=== PATIENT | male | born 1950 | race Caucasian/White ===

== ENCOUNTER → 2016-05-15 | Outpatient (CLI) | payer MEDICARE, OTHER ==
--- NOTE | 2016-05-15 14:15 | US ---
EXAMINATION TYPE: US duplex aorta DATE OF EXAM: 05/15/2016 2:05 PM COMPARISON: NONE CLINICAL HISTORY: Z87.891 History of tobacco. Pt states previous smoker, no other complaints at this time EXAM MEASUREMENTS: Abdominal Aorta: Proximal: 2.0 x 2.1 cm Mid: 1.8 x 1.8 cm Distal: 1.7 x 2.0 cm Bifurcation: ANGEL: 1.0 x 0.8 cm DEBORAH: 1.1 x 0.9 cm Aorta appeared wnl, no evidence of AAA IMPRESSION: NO EVIDENCE OF AORTIC ANEURYSM AT THIS TIME.
== END | disposition home or self-care (01) ==
LOC: RADUSWWP 13:48
PROVIDERS: ATTEND Family Medicine
DX: Z09 Encounter for follow-up examination after completed treatment for conditions other than malignant neoplasm (principal); Z87.891 Personal history of nicotine dependence
CPT/HCPCS: 93979

== ENCOUNTER 2018-12-02 06:42 | Day surgery (SDC) | payer MEDICARE, OTHER ==
[~2018-12-02 06:42] MED LIST: LACTATED RINGERS 1,000 ML IV SCH; LIDOCAINE 1% 20 ML VIAL (10MG/ML) FOR IV START INTRADERMA PRN
[2018-12-02 07:11] VITALS: TEMP 97.2
[2018-12-02] MEDS ORDERED: SCOPOLAMINE 1.5MG/72HR PATCH TRANSDERM ONE (07:36)
[2018-12-02] MEDS ORDERED: PROPOFOL 10 MG/ML 20 ML VIAL IV ONE (07:55)
[2018-12-02] MEDS ORDERED: LIDOCAINE 1% INJ 10MG/ML (20 ML MDV) ONE (07:55)
--- NOTE | 2018-12-02 08:01 | P.GSHP ---
History of Present Illness H&P Date: 12/02/18 Chief Complaint: Screening colonoscopy This is a 68-year-old male who presents today for screening colonoscopy. Patient denies any significant GI complaints. Past Medical History Past Medical History: Hyperlipidemia, Osteoarthritis (OA) History of Any Multi-Drug Resistant Organisms: None Reported Additional Past Surgical History / Comment(s): LEFT ROTATOR CUFF X 2. Past Anesthesia/Blood Transfusion Reactions: Motion Sickness, Postoperative Nausea & Vomiting (PONV) Additional Past Anesthesia/Blood Transfusion Reaction / Comment(s): HAS HAD N & V EVEN AFTER COLONSCOPY Past Psychological History: No Psychological Hx Reported Smoking Status: Former smoker Past Alcohol Use History: None Reported Additional Past Alcohol Use History / Comment(s): QUIT ABOUT 15 YRS , 1 PPD Past Drug Use History: None Reported Medications and Allergies Home Medications Medication Instructions Recorded Confirmed Type Atorvastatin [Lipitor] 10 mg PO HS 11/29/18 12/02/18 History Celecoxib [CeleBREX] 200 mg PO QAM 11/29/18 12/02/18 History Allergies Allergy/AdvReac Type Severity Reaction Status Date / Time amoxicillin AdvReac Nausea Verified 11/29/18 15:50 Surgical - Exam Vital Signs Temp Pulse Resp BP Pulse Ox 97.2 F L 87 14 151/81 98 12/02/18 07:09 12/02/18 07:09 12/02/18 07:09 12/02/18 07:09 12/02/18 07:09 - General well developed, well nourished, no distress - Eyes PERRL - ENT normal pinna - Neck no masses - Respiratory normal expansion - Cardiovascular Rhythm: regular - Abdomen Abdomen: soft, non tender Assessment and Plan Assessment: We'll perform screening colonoscopy.
--- NOTE | 2018-12-02 08:11 | P.OP ---
Date of Procedure: 12/02/18 Preoperative Diagnosis: Screening colonoscopy Postoperative Diagnosis: Diverticulosis Internal and external hemorrhoids Procedure(s) Performed: Colonoscopy Anesthesia: MAC Surgeon: Matthew Escalante Pathology: none sent Condition: stable Disposition: PACU Description of Procedure: Patient's placed on the endoscopy table in the lateral position. He received IV sedation. Digital rectal exam was performed which revealed internal and external hemorrhoids. The flexible colonoscope was then placed patient anus passed throughout the entire colon. The ileocecal valve was visualized. The cecum, ascending and transverse colon appeared normal. In the descending; there is moderate diverticular changes. There is no evidence of diverticulitis. Scope was then brought back the rectum and this appeared normal. Scope withdrawn the patient.
[2018-12-02 08:20] VITALS: RESP 16
[2018-12-02 08:29] VITALS: BP 117/68; PULSE 81
== END 2018-12-02 08:59 | disposition home or self-care (01) ==
LOC: ORWHC2ENDO 06:42
PROVIDERS: ATTEND Surgery
DX: Z12.11 Encounter for screening for malignant neoplasm of colon (principal); K57.30 Diverticulosis of large intestine without perforation or abscess without bleeding; K64.8 Other hemorrhoids; K64.4 Residual hemorrhoidal skin tags; E78.5 Hyperlipidemia, unspecified; M19.90 Unspecified osteoarthritis, unspecified site; Z79.1 Long term (current) use of non-steroidal anti-inflammatories (NSAID); Z79.899 Other long term (current) drug therapy; Z88.0 Allergy status to penicillin; Z98.890 Other specified postprocedural states; Z87.891 Personal history of nicotine dependence
CPT/HCPCS: J2001; J2704; G0121; 45378

== ENCOUNTER → 2019-02-27 | Outpatient (CLI) | payer MEDICARE, OTHER ==
--- NOTE | 2019-02-27 15:26 | EST ---
EXERCISE STRESS AGE: 68 SEX: M HT: 5'5" WT: 170 PROTOCOL: Anton Stress Test STAGE: I DURATION OF EXERCISE: 3:30 HEART RATE REST: 107 BLOOD PRESSURE REST: 145/100 MAXIMUM HEART RATE ACHIEVED: 139 MAXIMUM BLOOD PRESSURE: 205/82 85% MPHR: 130 100% MPHR: 153 METS: 5.2 INDICATIONS: Family history. CLINICAL INFORMATION: Patient was exercised for a total period of 3 minutes and 30 seconds. The peak heart rate of 139 was achieved. Maximum blood pressure of 205/82 mmHg was noted. Patient did not complain of any chest pain during the test. The test was terminated because of the symptoms of shortness of breath. Resting EKG shows normal sinus rhythm with normal ID interval and QRS duration and normal ST-T wave. No ST-segment depression suggestive of ischemia is noted. Occasional PVCs were noted. FINAL IMPRESSION: 1. This exercise EKG does not show any ST-segment depression suggestive of ischemia. 2. Patient's exercise tolerance is below average and is limited due to the symptoms of shortness of breath. 3. Intermittent PVCs were noted. MMODL / IJN: [id number] /
== END | disposition home or self-care (01) ==
LOC: RADNMMAIN 10:22
PROVIDERS: ATTEND Family Medicine
DX: Z09 Encounter for follow-up examination after completed treatment for conditions other than malignant neoplasm (principal); I49.3 Ventricular premature depolarization; R06.02 Shortness of breath; Z82.49 Family history of ischemic heart disease and other diseases of the circulatory system
CPT/HCPCS: 93017

== ENCOUNTER 2019-04-20 07:51 | Day surgery (SDC) | payer MEDICARE, OTHER ==
[2019-04-19 08:19] VITALS: BMI 29.2
[~2019-04-20 07:51] MED LIST changes: +DEXAMETHASONE SOD PHOSPHATE 10 MG/ML 1 ML VIAL IV ONE; +MIDAZOLAM 2 MG/2 ML VIAL IV PRN; +fentaNYL (PF) 50 MCG/ML 2 ML AMP IVP PRN
[2019-04-20] MEDS: ONDANSETRON 4 MG/2 ML VIAL IVP ONE ×2 (08:31→13:24)
[2019-04-20] MEDS ORDERED: LIDOCAINE 1% INJ 10MG/ML (20 ML MDV) ONE (10:53)
[2019-04-20] MEDS ORDERED: PROPOFOL 10 MG/ML 20 ML VIAL IV ONE (10:53)
[2019-04-20] MEDS ORDERED: fentaNYL (PF) 50 MCG/ML 2 ML AMP ONE (10:53)
[2019-04-20] MEDS ORDERED: SUCCINYLCHOLINE CHLORIDE 100 MG/5 ML SYR IV ONE (10:53)
[2019-04-20] MEDS ORDERED: MIDAZOLAM 2 MG/2 ML VIAL ONE (10:53)
--- NOTE | 2019-04-20 11:58 | P.OP ---
Date of Procedure: 04/20/19 Preoperative Diagnosis: 1. Right hallux rigidus 2. Right bunionette deformity Postoperative Diagnosis: Same Procedure(s) Performed: 1. Implant arthroplasty first MTP joint, right foot 2. Fifth MTP lateral eminence resection and capsular advancement, right foot Anesthesia: ELBERT Surgeon: Gus Prieto [employer] Worker #1: Claudy Stone Estimated Blood Loss (ml): 5 IV fluids (ml): 1,200 Pathology: none sent Condition: stable Disposition: PACU Indications for Procedure: The patient is very pleasant 68-year-old male with a long-standing history of problems with his right foot. He filled a lengthy course of nonsurgical iglesia tment for hallux rigidus and a bunionette deformity. We discussed different surgical treatments for hallux rigidus including cheilectomy, fusion, and implant arthroplasty. After discussing the pros and cons the patient requested going forward with implant arthroplasty. We discussed the potential risks, Locations, and limitations including but not limited to risk of infection, risk of anesthesia, risk of damage to local blood vessels or nerves, risk of continued or worsened pain, risk of intraoperative fracture, risk of postoperative fracture risk of implant subsidence, risk of DVT, risk of PE, risk of other medical complications, need for further surgery including removal of the implant fusion, generalized to satisfaction with his surgical outcome, and inability to regain preinjury level of function, and possibly loss of life or limb. The patient also requested surgical management of a bunionette deformity. We discussed different options including lateral eminence resection with S urgery in cement, distal osteotomy, and diaphyseal osteotomy. After discussing the pros and cons of both in reviewing his x-rays of both decided that the lateral eminence resection and capsular advancement would be in his best interest. He understands the potential risks and Locations including but not limited to risk of infection, damage to local blood vessels or nerves, under correction, overcorrection, recurrence, continued or worsened symptoms, and possibly loss of life or limb. He understands that while these are some of the most common complications other less common complications are possible. He provided his verbal and written consent to go forward with surgery. Description of Procedure: The patient is a thin prep in holding and the correct right foot was marked with my initials. I reviewed the consent form with the patient and his . All their questions were answered. The patient was then brought back to the operating room by anesthesia. He was positioned on the OR table where general anesthetic and preoperative antibiotics were given. A tourniquet was applied to the proximal aspect of the right leg. All bony prominences were well-padded. The right leg was then prepped and draped in the standard sterile fashion. Prior to starting surgery timeout was performed identifying the correct patient, operative extremity, and procedure. The patient's leg was then elevated, exsanguinated with an Esmarch bandage, and the tourniquet was inflated to 250 mmHg. I began by outlining a straight dorsal incision to the first MTP joint. Skin incision was made with a scalpel and dissection was carried down carefully through the subcu cutaneous tissue. The EHL tendon sheath was incised and the tendon was retracted laterally. The capsule of the first MTP joint was incised. On inspection of the joint there were large peripheral osteophytes which were contoured. On inspection of the joint there was full-thickness cartilage loss over the dorsal two thirds of the first metatarsal and proximal phalanx. A K wire was driven on the central aspect of the first metatarsal head. A 10 mm implant appeared to be the correct size. The reamer was used over the K wire to create a socket for the Cartiva implant. A 10 mm implant was dispensed and then press-fit into the socket after the wound had been thoroughly irrigated of debris. The joint was brought through range of motion and had a smooth arc of motion. The wound was thoroughly irrigated and closed in layers. X Attention was then turned to the lateral aspect of the fifth MTP joint. Skin incision was made with a scalpel. Dissection was carried down carefully to the subcu tenuous tissue. A Chevron type capsulotomy was performed with the apex proximally. The lateral aspect of the fifth metatarsal head was then exposed and a small microsagittal saw was used to remove an enlarged prominence flush with the shaft. A rasp was used to contour the lateral aspect. The capsule was then advanced proximally to help further straighten the toe. The wound was thoroughly irrigated and closed in layers. A sterile dressing consisting of Betadine soaked Adaptic, 4 x 4, and web rolls applied followed by an Carlos wrap. The patient was awoken from his anesthetic, transferred from the OR table to the gurney, and brought to recovery have entire procedure well. Plan: The patient is going to be discharged home as an outpatient. He can weight-bear as tolerated in a boot. He will leave his dressing on for 2 days at which point he can be removed and he can get incision wet in the shower. He is to not soak the foot. He will follow-up in the office in 2 weeks. He does not need x-rays at that time.
--- NOTE | 2019-04-20 12:19 | FL ---
EXAMINATION TYPE: FL guidance operating room, XR foot limited RT DATE OF EXAM: 04/20/2019 CLINICAL HISTORY: First toe pain. TECHNIQUE: Fluoroscopy. Limited intraoperative views right foot. COMPARISON: None. FINDINGS: Fluoroscopic guidance was provided during right first toe arthroplasty procedure performed by Dr. Prieto. A total of 1 seconds of fluoroscopic time was utilized during the procedure and si ngle spot intraoperative image is acquired. Single images acquired show [id number] disc space narrowing with moderate peripheral spurring a t first metatarsal-phalangeal joint. IMPRESSION: As Above.
[2019-04-20 12:21] VITALS: TEMP 98.2
[2019-04-20] MEDS: HYDROmorphone 0.5 MG/0.5 ML SYRINGE IVP PRN ×2 (12:43→12:48)
[2019-04-20] MEDS ORDERED: HYDROcodone/APAP 5-325MG 1 EACH TAB PO ONE (14:27)
[2019-04-20] MEDS ORDERED: hydrALAZINE HCL 20 MG/ML 1 ML VIAL IVP ONE (14:59)
[2019-04-20 15:20] VITALS: BP 153/81; PULSE 100; RESP 18
== END 2019-04-20 16:20 | disposition home or self-care (01) ==
LOC: OR 07:51
PROVIDERS: ATTEND Orthopaedic Surgery
DX: M20.21 Hallux rigidus, right foot (principal); M21.621 Bunionette of right foot; M19.071 Primary osteoarthritis, right ankle and foot; E78.5 Hyperlipidemia, unspecified; F17.210 Nicotine dependence, cigarettes, uncomplicated; Z88.0 Allergy status to penicillin; Z79.899 Other long term (current) drug therapy; Z98.890 Other specified postprocedural states; Z97.3 Presence of spectacles and contact lenses; Z82.49 Family history of ischemic heart disease and other diseases of the circulatory system
CPT/HCPCS: 73620; 28110; 28291; C1713; J2250; J0360; J1100; J0690; J2405; J2001; J3010; J0330; J2704; J1170

== ENCOUNTER → 2020-01-26 | Outpatient (CLI) | payer MEDICARE, OTHER ==
[2020-01-26 13:46] LABS: African American GFR (CKD) >90 (>60 ml/min/1.73 sqM); Blood Urea Nitrogen 18 mg/dL (9-20); Non-African American GFR(CKD) 80 (>60 ml/min/1.73 sqM)
--- NOTE | 2020-01-26 15:01 | CT ---
EXAMINATION TYPE: CT abdomen pelvis wo/w con DATE OF EXAM: 01/26/2020 COMPARISON: None INDICATION: diverticulitis DLP: 1687 mGycm, Automated exposure control for dose reduction was used. CONTRAST: 100 mL of Isovue 300. Study performed with Oral Contrast TECHNIQUE: Axial images were obtained from above the diaphragm to the pubic rami in the axial plane a t 5 mm thick sections. Reconstructed images are reviewed on the computer in the coronal plane. FINDINGS: Limited CT sections are obtained the lung bases. The lung bases are clear. CT ABDOMEN: Liver: Normal Spleen: Normal. Splenule is adjacent to the lateral anterior aspect of the spleen. Pancreas: Normal Adrenal glands: The adrenal glands are normal. Gallbladder: Normal Kidneys: No masses are evident. No hydronephrosis is present. No cysts are present. Delayed images were obtained through the kidneys, which remain unremarkable. Aorta: Vascular calcification is within the aorta. Inferior vena cava: Normal. CT PELVIS: There is extensive diverticular changes through the sigmoid colon. No suspicious adjacent inflammator y changes to suggest acute diverticulitis is evident. Loops of bowel distended with oral contrast mary grace ear normal. There are loops of bowel which are incompletely distended or lack oral contrast limiting their evaluation. Appendix: Normal as visualized. Urinary bladder: Normal. Genitourinary structures: Prostate is prominent Osseous structures: No suspicious lytic or sclerotic lesions. IMPRESSIONS: 1. Diverticulosis without acute diverticulitis. 2. Prostate prominence.
== END | disposition home or self-care (01) ==
LOC: RADCTMAIN 12:29
PROVIDERS: ATTEND Family Medicine
DX: K57.30 Diverticulosis of large intestine without perforation or abscess without bleeding (principal)
CPT/HCPCS: 82565; 84520; 74178; 36415; Q9967